=== PATIENT | male | born 1955 | race American Indian/Alaskan Native ===

== ENCOUNTER 2017-02-08 22:05 | Emergency (ER) | payer MEDICARE ==
[2017-02-08 22:15] VITALS: BMI 30.5
[2017-02-08 22:17] VITALS: BP 135/85; PULSE 76; RESP 18; TEMP 98.1; O2SAT 97
[2017-02-08] MEDS ORDERED: Albuterol-Ipratrop 3 mg / 0.5 (3 ml) UD IH STA (22:30)
[2017-02-08] MEDS ORDERED: Albuterol-Ipratrop 3 mg / 0.5 (3 ml) UD ONE (22:37)
[2017-02-08 22:49] LABS: BASO # 0.01 K/mm3 (0.0-2.0); BASO % 0.1 % (0.0-3.0); EOS # 0.2 (0.0-0.7); EOS % 2.3 % (1.5-5.0); GRAN # 5.55 (1.4-6.5); GRAN % 69.5 % (50.0-68.0); HEMATOCRIT 44.8 % (42.0-52.0); LYMPH # 1.7 (1.2-3.4); LYMPH % 21.1 % (22.0-35.0); MEAN CELL VOLUME 97.2 fl (80.0-105.0); MEAN CORPUSCULAR HEMOGLOBIN 33.6 pg (25.0-35.0); MEAN CORPUSCULAR HGB CONC 34.6 g/dl (31.0-37.0); MEAN PLATELET VOLUME 11.5 fl (7.0-11.0); MONO # 0.6 (0.1-0.6); RED CELL DISTRIBUTION WIDTH 15.8 % (11.5-14.5)
[2017-02-08 22:54] LABS: ALB/GLOB RATIO 1.4 (1.1-1.8); BILIRUBIN,TOTAL 0.7 mg/dL (0.2-1.3); CALCIUM 9.1 mg/dL (8.4-10.5); POTASSIUM 4.6 mmol/L (3.6-5.0); TOTAL PROTEIN 5.3 g/dL (5.8-8.3)
[2017-02-08 23:06] LABS: TROPONIN I 0.05 ng/mL
--- NOTE | 2017-02-08 23:10 | ED PDOC ---
Arrival/HPI - General Chief Complaint: Medical Clearance Time Seen by Provider: 02/08/17 22:13 Historian: Patient, Police - History of Present Illness Narrative History of Present Illness (Text): 02/08/17 22:30 Behzad cMkeon is a 62 year old male, whose past medical history includes pacemaker, CABG, and diabetes, who presents to the Emergency department brought in under police custody complaining of shortness of breath tonight. Patient denies any fever, chills, nausea, vomiting, diarrhea, back pain, neck pain, headache, dizziness, or any other complaints. Time/Duration: Other (tonight) Symptom Onset: Gradual Symptom Course: Unchanged Activities at Onset: Light Past Medical History - Provider Review Nursing Documentation Reviewed: Yes - Tetanus Immunization Tetanus Immunization: Up to Date - Cardiac Hx Pacemaker: Yes - Endocrine/Metabolic Hx Diabetes Mellitus Type 1: Yes - Psychiatric Hx Depression: No Hx Emotional Abuse: No Hx Physical Abuse: No Hx Substance Use: No - Surgical History Hx Coronary Artery Bypass Graft: Yes (tripple) Hx Vascular Access Device: Yes Other/Comment: internal defibrillator - Suicidal Assessment Feels Threatened In Home Enviroment: No Family/Social History - Physician Review Nursing Documentation Reviewed: Yes Family/Social History: Unknown Family HX Smoking Status: Current Some Days Smoker Hx Alcohol Use: Yes Frequency of alcohol use: Daily Hx Substance Use: No Hx Substance Use Treatment: No Allergies/Home Meds Allergies/Adverse Reactions: Allergies No Known Allergies Allergy (Verified 01/20/14 11:03) Home Medications: Home Meds Medication Instructions Recorded Confirmed Unobtainable 02/08/17 02/08/17 Review of Systems - Physician Review All systems were reviewed & negative as marked: Yes - Review of Systems Constitutional: Normal. absent: Fevers Eyes: Normal ENT: Normal Respiratory: SOB. absent: Cough Cardiovascular: Normal. absent: Chest Pain Gastrointestinal: Normal. absent: Abdominal Pain, Diarrhea, Nausea, Vomiting Genitourinary Male: Normal. absent: Dysuria, Frequency, Hematuria, Urinary Output Changes Musculoskeletal: Normal. absent: Back Pain, Neck Pain Skin: Normal. absent: Rash Neurological: Normal. absent: Headache, Dizziness Endocrine: Normal Hemo/Lymphatic: Normal Psychiatric: Normal Physical Exam Vital Signs Reviewed: Yes Vital Signs Temp Pulse Resp BP Pulse Ox 02/08/17 22:16 98.1 F 76 18 135/85 97 Temperature: Afebrile Blood Pressure: Normal Pulse: Regular Respiratory Rate: Normal Appearance: Positive for: Well-Appearing, Non-Toxic, Comfortable Pain Distress: None Mental Status: Positive for: Alert and Oriented X 3 - Systems Exam Head: Present: Atraumatic, Normocephalic Pupils: Present: PERRL Extroacular Muscles: Present: EOMI Conjunctiva: Present: Normal Mouth: Present: Moist Mucous Membranes Neck: Present: Normal Range of Motion Respiratory/Chest: Present: Wheezes. No: Respiratory Distress, Accessory Muscle Use Cardiovascular: Present: Regular Rate and Rhythm, Normal S1, S2. No: Murmurs Abdomen: Present: Normal Bowel Sounds. No: Tenderness, Distention, Peritoneal Signs Back: Present: Normal Inspection Upper Extremity: Present: Normal Inspection. No: Cyanosis, Edema Lower Extremity: Present: Normal Inspection. No: Edema Neurological: Present: GCS=15, CN II-XII Intact, Speech Normal Skin: Present: Warm, Dry, Normal Color. No: Rashes Psychiatric: Present: Alert, Oriented x 3, Normal Insight, Normal Concentration Medical Decision Making ED Course and Treatment: 02/08/17 22:30 Impression: 62 year old male complaining of shortness of breath tonight. Differential Diagnosis included but are not limited to: COPD vs. CHF vs. pneumonia Plan: -- EKG -- Chest X-ray -- Labs, cardiac enzymes, BNP, VBG -- Duoneb -- Reassess and disposition Progress Notes: Reviewed EKG, NSR at 89 bpm. LAD. RBBB. Non-specific ST/T wave changes. 02/08/17 23:33 Reviewed radiology, Chest X-ray shows pacemaker, mild cardiomegaly, otherwise no acute processes. 02/09/17 00:39 On reevaluation the patient feels better and is in no acute distress. Patient is stable for discharge. Patient was instructed to follow up with physician/ clinic. Pt medically cleared for incarceration. - Lab Interpretations Lab Results: 02/08/17 22:35 02/08/17 22:35 Lab Results 02/08/17 22:35: Sodium 142, Potassium 4.6, Chloride 107, Carbon Dioxide 27, Anion Gap 13, BUN 23 H, Creatinine 1.5 H, Est GFR ( Amer) 57, Est GFR ( Non-Af Amer) 47, Random Glucose 149 H, Calcium 9.1, Total Bilirubin 0.7, AST 28 , ALT 39, Alkaline Phosphatase 54, Lactate Dehydrogenase 628, Total Creatine Kinase 131, Troponin I 0.05, NT-Pro-B Natriuret Pep 5290 H, Total Protein 5.3 L , Albumin 3.1, Globulin 2.2, Albumin/Globulin Ratio 1.4 02/08/17 22:35: WBC 8.0, RBC 4.61, Hgb 15.5, Hct 44.8, MCV 97.2, MCH 33.6, MCHC 34.6, RDW 15.8 H, Plt Count 179, MPV 11.5 H, Gran % 69.5 H, Lymph % (Auto) 21.1 L, [place] % (Auto) 7.0 H, Eos % (Auto) 2.3, Baso % (Auto) 0.1, Gran # 5.55, Lymph # 1.7, [place] # 0.6, Eos # 0.2, Baso # 0.01 I have reviewed the lab results: Yes - RAD Interpretation Radiology Orders: 02/08/17 22:31 CHEST PORTABLE [RAD] Stat Vehicle Safety Inspector: ED Physician - EKG Interpretation Interpreted by ED Physician: Yes Type: 12 lead EKG - Medication Orders Current Medication Orders: Discontinued Medications Albuterol/Ipratropium (Duoneb 3 Mg/0.5 Mg (3 Ml) Ud) 3 ml IH STAT STA Stop: 02/08/17 22:31 Last Admin: 02/08/17 22:40 Dose: 3 ml Albuterol/Ipratropium (Duoneb 3 Mg/0.5 Mg (3 Ml) Ud) Confirm Administered Dose 3 ml .ROUTE .STK-MED ONE Stop: 02/08/17 22:38 - Scribe Statement The provider has reviewed the documentation as recorded by the Luana Beatty Provider Scribe Attestation: All medical record entries made by the Scribe were at my direction and personally dictated by me. I have reviewed the chart and agree that the record accurately reflects my personal performance of the history, physical exam, medical decision making, and the department course for this patient. I have also personally directed, reviewed, and agree with the discharge instructions and disposition. Disposition/Present on Arrival - Present on Arrival Any Indicators Present on Arrival: No History of DVT/PE: No History of Uncontrolled Diabetes: No Urinary Catheter: No History of Decub. Ulcer: No History Surgical Site Infection Following: None - Disposition Have Diagnosis and Disposition been Completed?: Yes Diagnosis: Chronic obstructive lung disease Disposition: HOME/ ROUTINE Disposition Time: 00:39 Condition: GOOD Discharge Instructions (ExitCare): COPD (Chronic Obstructive Pulmonary Disease ) (ED) Additional Instructions: medically stable for incarceration Referrals: Jo Metcalf MD [Primary Care Provider] - Follow up with primary Forms: [employer] ([place]isian)
--- NOTE | 2017-02-09 07:48 | RAD ---
HISTORY: sob COMPARISON: No prior. FINDINGS: LUNGS: Limited patchy atelectasis or infiltrate is questioned at the right lung base with linear atelectasis identified in the left base versus fibrosis. PLEURA: No significant pleural effusion identified, no pneumothorax apparent. CARDIOVASCULAR: Prosthetic cardiac valve is appreciate was well as implanted cardiac pacemaker/ defibrillator with the generator the left pectoralis region and 3 leads identified entering into the heart. Cardiomegaly is suggested though there may be an element of technical magnification in this frontal portable radiograph. No pulmonary vascular derangement is appreciated however. OSSEOUS STRUCTURES: Sternotomy wires are identified. VISUALIZED UPPER ABDOMEN: Normal. OTHER FINDINGS: None. IMPRESSION: Limited right basilar atelectasis or infiltrate. No pleural effusion bilaterally. Cardiomegaly. Pacemaker and prosthetic cardiac valve are noted.
--- NOTE | 2017-02-09 11:07 | CARD ---
APPROVED REPORT EKG Measurement Heart [id number] <Conclusion> Pacemaker Aimee.
== END 2017-02-09 00:39 | disposition home or self-care (01) ==
LOC: ED 22:05
DX: J44.9 Chronic obstructive pulmonary disease, unspecified (principal); Z95.0 Presence of cardiac pacemaker; Z95.1 Presence of aortocoronary bypass graft; F17.210 Nicotine dependence, cigarettes, uncomplicated; Z65.3 Problems related to other legal circumstances